=== PATIENT | female | born 1995 | race Caucasian/White ===

== ENCOUNTER 2021-03-16 15:22 | Emergency (ER) | payer OTHER ==
--- NOTE | 2021-03-16 16:22 | ED ---
General Adult HPI - General Chief complaint: Upper Respiratory Infection Stated complaint: Covid+,Wants antibody Time Seen by Provider: 03/16/21 15:56 Source: patient Mode of arrival: ambulatory Limitations: no limitations - History of Present Illness Initial comments: Dictation was produced using [employer] dictation software. please excuse any gramma tical, word or spelling errors. Chief Complaint: 25-year-old feel presents with quest for monoclonal antibodies History of Present Illness: Patient is 25-year-old female she denies any significant past medical history. She is tested positive: 4 days ago. She is asymptomatic for the last 6 days. States that she lives in a recovery house when other individuals in the living facility tested positive. Patient having mild symptoms of cough and constitutional symptoms. She heard that our emergency department was providing monoclonal antibody infusions. The ROS documented in this emergency department record has been reviewed and confirmed by me. Those systems with pertinent positive or negative responses have been documented in the HPI. All other systems are other negative and/or noncontributory. PHYSICAL EXAM: General Impression: Alert and oriented x3, not in acute distress HEENT: Normocephalic atraumatic, extra-ocular movements intact, pupils equal and reactive to light bilaterally, mucous membranes moist. Cardiovascular: Heart regular rate and rhythm Chest: Able to complete full sentences, no retractions, no tachypnea Abdomen: abdomen soft, non-tender, non-distended, no organomegaly Musculoskeletal: Pulses present and equal in all extremities, no peripheral edema Motor: no focal deficits noted Neurological: CN II-XII grossly intact, no focal motor or sensory deficits noted Skin: Intact with no visualized rashes Psych: Normal affect and mood ED course: 25-year-old female presents to the emergency department for monoclonal antibody infusion. She's been symptomatic of covered for 6 days. Vital signs upon arrival are within acceptable limits. Patient is not hypoxic. Patient ordered for monoclonal antibody infusion. Chest x-ray shows no acute processes. Patient given multiple antibodies observed one hour after the infusion. Patient is stable. Patient be discharged. - Related Data Allergies Allergy/AdvReac Type Severity Reaction Status Date / Time No Known Allergies Allergy Verified 03/16/21 15:51 Review of Systems ROS Statement: Those systems with pertinent positive or pertinent negative responses have been documented in the HPI. ROS Other: All systems not noted in ROS Statement are negative. Past Medical History Past Medical History: Unable to Obtain History of Any Multi-Drug Resistant Organisms: None Reported Past Surgical History: No Surgical Hx Reported Past Psychological History: Anxiety, PTSD Smoking Status: Vaper Past Alcohol Use History: None Reported Past Drug Use History: Opiates, Prescription Drug Abuse General Exam Limitations: no limitations Course Vital Signs 03/16/21 15:45 Temperature 98.0 F Pulse Rate 92 Respiratory 19 Rate Blood Pressure 127/87 O2 Sat by Pulse 97 Oximetry Disposition Clinical Impression: COVID-19 Disposition: HOME SELF-CARE Condition: Fair Instructions (If sedation given, give patient instructions): Coronavirus Disease 2019 (COVID-19) Is patient prescribed a controlled substance at d/c from ED?: No Referrals: None,Stated [Primary Care Provider] - 1-2 days
--- NOTE | 2021-03-16 16:25 | XR ---
EXAMINATION TYPE: XR chest 1V portable DATE OF EXAM: 03/16/2021 COMPARISON: NONE HISTORY: COVID. TECHNIQUE: Single frontal view of the chest is obtained. FINDINGS: There is no suspicious focal air space opacity, pleural effusion, or pneumothorax seen. T he cardiac silhouette size is within normal limits. The osseous structures are intact. IMPRESSION: No acute process.
[2021-03-16] MEDS ORDERED: SODIUM CHLORIDE 0.9% 50 ML IVPB ONE (16:30)
[2021-03-16] MEDS ORDERED: BAMLANIVIMAB (EUA) 700 MG, ETESEVIMAB (EUA) 1,400 MG in SODIUM CHLORIDE 0.9% 50 ML IVPB ONE (16:45)
[2021-03-16 17:41] VITALS: BP 116/76; PULSE 72; RESP 16; TEMP 98.6
== END 2021-03-16 17:47 | disposition home or self-care (01) ==
LOC: EC 15:22
DX: U07.1 COVID-19 (principal); F17.290 Nicotine dependence, other tobacco product, uncomplicated
CPT/HCPCS: 87635; 71045; 99283; J3490